=== PATIENT | female | born 1975 | race Two or more races ===

== ENCOUNTER 2021-01-18 05:47 | Day surgery (SDC) | payer OTHER ==
[~2021-01-18] VITALS: Ht 157.5 cm; Wt 90.9 kg
[~2021-01-18 05:47] MED LIST: ATORVASTATIN CA40 MG PO; GLUCOPHAGE1000 MG PO; LISINOPRIL40 MG PO; VALTREX1000 MG PO; VENTOLIN HFA18 GM INH
[2021-01-18] MEDS ORDERED: SIMVASTATIN20 MG PO (06:05)
[2021-01-18] MEDS ORDERED: IBUPROFEN200 M1 PO (06:13)
[2021-01-18] MEDS ORDERED: MUCINEX600 MG PO (06:13)
--- NOTE | 2021-01-18 08:16 | NUR ---
01/18/21 0816 Rekha Navarrete 0810-PATIENT ARRIVED TO PACU ON 6L MASK RR EVEN, NONAROUSABLE ORAL AIRWAY IN PLACE. MARITO PAD TO VAGINA SMALL AMT OF DRAINAGE. PER SAVANA INDEPENDENT CONSULTANT PATIENT HAS LOOSE TOOTH ON LEFT UPPER THAT SHE HAD PREOP. IVF INFUSING. SR 0811-PATIENT AROUSING TO VERBAL STIMULI ORAL AIRWAY REMOVED WITHOUT DIFFICULTY TOOTH INTACT. PATIENT NOT FOLLOWING COMMANDS. EYES CLOSED. RR EVEN 6L MASK 100% 0815-GLUCOSE CHECKED 141.
--- NOTE | 2021-01-18 08:56 | NUR ---
0845: PT ARRIVES BACK TO DS RM 5 FROM PACU WITH EYES CLOSED. PT AROUSES EASILY WITH VERBAL STIMULATION AND IS ABLE TO DENY NAUSEA AND STATES PAIN 7/10 IN LOWER ABD AND POINT TO SPOT BELOW UMBILICUS. WARM COMPRESS TO AREA TO HELP WITH CRAMPING. CALL LIGHT WITHIN REACH, SON AT BEDSIDE.
[2021-01-18] MEDS ORDERED: IBUPROFEN800 MG PO (09:40)
--- NOTE | 2021-01-18 09:52 | NUR ---
[id number]: RN IN PT ROOM TO ASSESS PAIN. PT STATES PAIN HAS DECREASED IN LOWER ABD AREA BUT SHE COUGHED AND IT CAUSED PAIN, WILL CONTINUE TO MONITOR. PT REQUESTS CRACKERS AND TAKES SMALL SIPS OF WATER. SON REMAINS AT BEDSIDE. 0950: PT TOLERATES CRACKERS WITH NO COMPLAINTS OF NAUSEA AND WOULD LIKE MORE. PT DENIES ANY PAIN IN LOWER ABD AREA AT THIS TIME. PT STATES IF SHE "BREATHES REALLY HARD, FEELS LIKE A ROCK ON TOP." PT CONT TO STATE THAT LAST WEEK SHE WAS "REALLY SICK WITH HER TONSILS" AND HAD A FEVER ONE DAY AND A PRODUCTIVE COUGH. PT STATES THAT "CHEST FEELS WEAK FROM THAT." LUNGS AUSCULTATED, EXPIRATORY WHEEZE NOTED. PT COUGHS WITH EACH DEEP BREATH. PT STATES HAVING ALBUTEROL INHALER AT HOME THAT SHE USES PRN. PT ENC TO USE AND CONTACT PCP IF COUGH DOESN'T GET BETTER. SON AT BEDSIDE, ACKNOWLEDGES EDUCATION. PT WILL USE CALL LIGHT WITH URGE TO VOID.
--- NOTE | 2021-01-18 11:05 | NUR ---
[id number]: PT SON COMES TO NURSES STATION TO NOTIFY THIS RN OF PT URGE TO VOID. PT ASSISTED TO SIDE OF BED PRIOR TO STANDING, DENIES NAUSEA OR DIZZINESS. PT AMBULATES WITH STEADY GAIT, RN ASSIST TO BATHROOM. PT PROVIDED CLEAN PERIPAD, IF NEEDED, AND ENC TO PULL CORD ON WALL WITH ANY NEEDS. PT ABLE TO VOID APPROX 400 MLS PINK/RED URINE WITH NO CLOTS PRESENT. PT BACK TO DS RM 5 TO GET CHANGED INTO PERSONAL CLOTHING. 1035: ARIANNA RN IN TO PT ROOM TO REMOVE IV. THIS RN IN TO PRESENT DC INSTRUCTIONS VERBALLY AND WRITTEN. PT PROVIDED HARD SCRIPT FOR PAIN MEDICINE IN DC PACKET. PT DC VIA WC TO S[facility] VEHICLE [facility].
--- NOTE | 2021-01-22 10:23 | OR ---
[facility] [address] [place], [place] [address] Signed DATE OF OPERATION: 01/18/2021 SURGEON: Abdias Rascon DO PROCEDURE: Hysteroscopy, D and C with MyoSure. PRECISION MACHINE OPERATOR: None. COMPLICATIONS: None. SPECIMEN: endometrial currettings and endometrial polyp, submitted as one specimen BLOOD LOSS: 25 mL. INDICATION: The patient is a 45-year-old female with history of abnormal uterine bleeding, pelvic pain, and dysmenorrhea. Ultrasound was performed demonstrating a 12.8 cm uterus with 6 mm endometrial stripe, possible leiomyoma in lower uterine segment. Risks, benefits, and alternatives to hysteroscopy D and C in office versus OR were discussed and the patient elected to proceed with hysteroscopy in operating room. DESCRIPTION OF PROCEDURE: The patient was taken to the operating room where she was placed under general anesthesia with LMA airway. She was prepped and draped in the normal sterile fashion. A weighted speculum was placed in the vagina and anterior lip of the cervix was grasped with an Allis clamp. Cervix was easily sequentially dilated with Hegar dilators to accommodate a 6 mm scope, which was then introduced into the uterine cavity without any difficulty. Uterine cavity was surveyed with findings as noted below and MyoSure reach device was used to perform initial polypectomy and circumferential curettage of the cavity. Bilateral tubal ostia were visualized easily before and after curettage. All instrumentation was removed. Excellent hemostasis was noted. Fluid deficit with the AquaLuxe fluid system was noted to be 400 mL. The patient was taken to recovery room in stable and satisfactory condition after lap and instrument counts were correct. The patient will follow up in office in 1 week to discuss pathology results. Electronically Signed By: ABDIAS RASCON DO 01/22/21 1023 PATIENT NAME: KATIA CHILDRESS OPERATIVE REPORT DATE OF : 73 REPORT #: [id number] PHYSICIAN: ABDIAS RASCON DO PCP: LOYD WILSON NP REPORT IS CONFIDENTIAL AND NOT TO BE RELEASED WITHOUT AUTHORIZATION [facility] [address] [facility], [place] [address] Signed FINDINGS: Normal appearing external genitalia. Cervix with decensus to 2cm above the hymen. Uterine cavity with thickened endometrial lining, 1cm polyp in right anterior lower uterine segment. Bilateral tubal ostia visualized. Abdias Rascon DO EMZ/MODL /[id number] Copies: ~ Electronically Signed By: ABDIAS RASCON DO 01/22/21 1023 PATIENT NAME: KATIA CHILDRESS OPERATIVE REPORT DATE OF : 73 REPORT #: [id number] PHYSICIAN: ABDIAS RASCON DO PCP: LOYD WILSON NP REPORT IS CONFIDENTIAL AND NOT TO BE RELEASED WITHOUT AUTHORIZATION
--- NOTE | 2021-01-23 13:28 | PATH ---
[facility] [address] [place], [place] [address] Signed SPECIMEN(S): A ECC ENDOMETRIAL POLYP SPECIMEN SOURCE: A. ECC ENDOMETRIAL POLYP CLINICAL HISTORY: Abnormal uterine bleeding; leiomyoma of uterus FINAL PATHOLOGIC DIAGNOSIS: Designated "ECC with endometrial polyp": - Fragments of benign endometrial polyp(s). - Fragments of myometrium with no histopathologic abnormality. - Negative for atypical hyperplasia or malignancy. NAL:cml:C2NR MICROSCOPIC EXAMINATION: Histologic sections of all submitted blocks are examined by light microscopy. These findings, together with the gross examination, support the pathologic diagnosis. GROSS DESCRIPTION: The specimen, labeled "Katia Branch," and designated on the requisition "ECC with endometrial polyp," is received in formalin and consists of 7.6 x 2.6 x 0.7 cm aggregate of red-pink soft tissue. The specimen is entirely submitted in cassette (A1-A3). FB (under the direct supervision of a pathologist) The Gross Description was prepared using a voice recognition system. The report was reviewed for accuracy; however, sound-alike word errors, addition and/or deletions may occur. If there is any question about this report, please contact Client Services. PERFORMING LABORATORY: The technical component was performed by [facility], [address] [place] [id number] (Highway Truck Driver: Kim Hurley MD; CLIA# [id number]). [facility], [address] [address] (CLIA# [id number]). Diagnostician: Yari Costa MD Pathologist Electronically Signed 01/23/2021 PATIENT NAME: KATIA BRANCH PATHOLOGY DATE OF : 73 REPORT #: [id number] PHYSICIAN: EMANI PATHOLOGY PCP: LOYD WILSON NP REPORT IS CONFIDENTIAL AND NOT TO BE RELEASED WITHOUT AUTHORIZATION [address] [address] Signed Copies: ~ PATIENT NAME: KATIA BRANCH PATHOLOGY DATE OF : 73 REPORT #: [id number] PHYSICIAN: EMANI PATHOLOGY PCP: LOYD WILSON NP REPORT IS CONFIDENTIAL AND NOT TO BE RELEASED WITHOUT AUTHORIZATION
== END 2021-01-18 10:50 | disposition home or self-care (01) ==
LOC: DS 05:47 → OPS 05:47 → DS 06:45 → OPS 10:50
PROVIDERS: ATTEND Obstetrics & Gynecology
PROC: 0UDB8ZX Extraction of Endometrium, Via Natural or Artificial Opening Endoscopic, Diagnostic (ICD-10-PCS; 2021-01-18)
PROC: 0UB98ZX Excision of Uterus, Via Natural or Artificial Opening Endoscopic, Diagnostic (ICD-10-PCS; principal; 2021-01-18 06:45)
DX: N84.0 Polyp of corpus uteri (principal); N93.9 Abnormal uterine and vaginal bleeding, unspecified; D25.9 Leiomyoma of uterus, unspecified; R10.2 Pelvic and perineal pain; N94.6 Dysmenorrhea, unspecified; E11.9 Type 2 diabetes mellitus without complications; J45.909 Unspecified asthma, uncomplicated; I10 Essential (primary) hypertension; E66.9 Obesity, unspecified; Z68.39 Body mass index [BMI] 39.0-39.9, adult
CPT/HCPCS: 00952; J1100; J1644; J1885; J2250; J2405; J2704; J2765; J3010; J7121

== ENCOUNTER 2025-01-19 00:05 | Emergency (ER) | payer OTHER ==
[~2025-01-19] VITALS: Ht 157.5 cm; Wt 79.3 kg
[~2025-01-19 00:05] MED LIST changes: +IBUPROFEN200 M1 PO; +IBUPROFEN800 MG PO; +MUCINEX600 MG PO; +SIMVASTATIN20 MG PO
[2025-01-19] MEDS ORDERED: OZEMPIC0.25 MG/02 SQ (00:33)
[2025-01-19] MEDS ORDERED: CETIRIZINE HCL10 MG PO (00:33)
[2025-01-19] MEDS ORDERED: FLUTICASONE-SA1 EAC3 (00:34)
[2025-01-19] MEDS ORDERED: EPINEPHRIN0.3 MG/0.3 IM (00:34)
[2025-01-19] MEDS ORDERED: GABAPENTIN100 MG PO (00:34)
[2025-01-19] MEDS ORDERED: KETOROLAC TROMETHAMINE 60 MG/2 ML VIAL IM ONE (00:45)
[2025-01-19 01:15] LABS: BLOOD/HGB, URINE TRACE-I (Negative); KETONE, URINE NEGATIVE (Negative); LEUK ESTERASE, URINE NEGATIVE (negative); NITRITE, URINE NEGATIVE (negative)
[2025-01-19 01:22] LABS: BACTERIA, URINE 1+ /hpf (negative); CASTS, URINE NONE SEEN \\lpf; CRYSTALS, URINE NONE SEEN (0-1+); EPITHELIAL CELLS, URINE SQUAMOUS 4+ /lpf (0-1+); REFLEX CULTURE, URINE No (No)
[2025-01-19] MEDS ORDERED: AMOXICILLIN500 MG PO (01:42)
[2025-01-19] MEDS ORDERED: AMOXICILLIN 500 MG HOME.PACK PO ONE (01:45)
[2025-01-19 01:53] VITALS: BP 131/67
== END 2025-01-19 01:54 | disposition home or self-care (01) ==
LOC: ED 00:05
PROVIDERS: Family Medicine
DX: H66.91 Otitis media, unspecified, right ear (principal); I10 Essential (primary) hypertension; E11.9 Type 2 diabetes mellitus without complications; E78.5 Hyperlipidemia, unspecified; Z79.51 Long term (current) use of inhaled steroids; Z79.899 Other long term (current) drug therapy; Z88.8 Allergy status to other drugs, medicaments and biological substances
CPT/HCPCS: 81001; 87651; 96372; 99283; J1885; U0002